=== PATIENT | female | born 1960 | race Hispanic/Latino ===

== ENCOUNTER 2018-09-25 11:28 | Emergency (ER) | payer BC ==
[~2018-09-25] VITALS: Ht 157.5 cm; Wt 90.9 kg
[~2018-09-25 11:28] MED LIST: CYMBALTA60 MG PO; MULT VITAMI1 PO; RISPERDAL1 M1 PO
[2018-09-25 12:32] VITALS: BP 134/83
== END 2018-09-25 12:32 | disposition home or self-care (01) | DRG 605 ==
LOC: ED 11:28
PROC: 0HQFXZZ Repair Right Hand Skin, External Approach (ICD-10-PCS; principal; 2018-09-25)
DX: S61.214A Laceration without foreign body of right ring finger without damage to nail, initial encounter (principal); W26.8XXA Contact with other sharp object(s), not elsewhere classified, initial encounter; Y93.G3 Activity, cooking and baking; Y92.000 Kitchen of unspecified non-institutional (private) residence as the place of occurrence of the external cause